=== PATIENT | male | born 1970 | race African-American/Black ===

== ENCOUNTER 2017-12-17 07:49 | Emergency (ER) | payer OTHER ==
[~2017-12-17] VITALS: Ht 185.4 cm; Wt 81.6 kg
[2017-12-17 07:58] VITALS: BP 144/103
[2017-12-17 08:15] VITALS: BP 144/103
== END 2017-12-17 08:15 | disposition home or self-care (01) ==
LOC: MED 07:49
DX: M54.2 Cervicalgia (principal); M54.6 Pain in thoracic spine
CPT/HCPCS: 99283